=== PATIENT | female | born 1990 ===

== ENCOUNTER 2017-12-16 13:40 | Emergency (ER) | payer OTHER ==
[2017-12-16 13:40] VITALS: BMI 39.9
[2017-12-16 14:14] VITALS: RESP 18
--- NOTE | 2017-12-16 15:08 | ED PDOC ---
HPI: Abdomen Time Seen by Provider: 12/16/17 14:05 Chief Complaint (Nursing): Abdominal Pain Chief Complaint (Provider): Abdominal Pain History Per: Patient History/Exam Limitations: no limitations Onset/Duration Of Symptoms: Days Current Symptoms Are (Timing): Still Present Additional Complaint(s): 27 year old female presents to the emergency department with a complaint diarrhea (non bloody), headache, vomiting, and epigastric abdominal pain x4 days. Reports she has been trying to eat fruits and water but is unable to hold anything in. Reports taking Tylenol PM yesterday. Denies fever or any sick contacts. Past Medical History Reviewed: Historical Data, Nursing Documentation, Vital Signs Vital Signs: Last Vital Signs Temp 97.0 F L 12/16/17 14:12 Pulse 90 12/16/17 14:12 Resp 18 12/16/17 14:12 BP 117/78 12/16/17 14:12 Pulse Ox 99 12/16/17 17:52 - Medical History PMH: Asthma Other PMH: Gastric sleeve - Surgical History Surgical History: - Family History Family History: States: Unknown Family Hx - Social History Current smoker - smoking cessation education provided: No Alcohol: None Drugs: Denies - Home Medications Home Medications: Ambulatory Orders Medication Instructions Recorded Albuterol HFA [Ventolin HFA 90 2 puff IH Q4H PRN #1 inh 05/13/16 mcg/actuation (8 g)] Amoxicillin/Clavulanate [Augmentin 1 tab PO BID #20 tab 05/13/16 875 MG-125 MG] Fluticasone Propionate [Flonase] 1 spr NS DAILY #1 bot 05/13/16 Promethazine/Dextromethorphan 10 ml PO Q6 PRN #1 bottle 05/13/16 [Promethazine-Dm Solution] Ondansetron [Zofran] 4 mg PO Q6H PRN #10 tab 12/16/17 - Allergies Allergies/Adverse Reactions: Allergies Allergy/AdvReac Type Severity Reaction Status Date / Time aminophylline Allergy RASH Verified 05/13/16 21:47 Review of Systems ROS Statement: Except As Marked, All Systems Reviewed And Found Negative (As per HPI, otherwise negative) Constitutional: Negative for: Fever, Other (sick contacts) Gastrointestinal: Positive for: Vomiting, Abdominal Pain, Diarrhea. Negative for: Hematochezia Neurological: Positive for: Headache Physical Exam - Reviewed Nursing Documentation Reviewed: Yes Vital Signs Reviewed: Yes - Physical Exam Appears: Positive for: No Acute Distress Head Exam: Positive for: NORMAL INSPECTION Skin: Positive for: Normal Color, Warm, Dry Eye Exam: Positive for: Normal appearance ENT: Positive for: Normal ENT Inspection. Negative for: Pharyngeal Erythema Cardiovascular/Chest: Positive for: Regular Rate, Rhythm. Negative for: Murmur Respiratory: Positive for: Normal Breath Sounds. Negative for: Accessory Muscle Use, Respiratory Distress Gastrointestinal/Abdominal: Positive for: Soft, Tenderness (Mild epigastric tenderness). Negative for: Normal Exam Neurologic/Psych: Positive for: Alert, Oriented (x3) - Laboratory Results Result Diagrams: 12/16/17 15:28 12/16/17 15:28 - ECG O2 Sat by Pulse Oximetry: 99 (RA) Pulse Ox Interpretation: Normal Medical Decision Making Medical Decision Making: Time: 1500 Initial impression: Diarrhea and abdominal pain rule out gastroenteritis Initial plan: --CMP --Lipase --CBC w/ diff --Famotidine 20 mg IVP --Sodium Chloride 1L IV --Ondansetron ODT 4 mg PO --Reevaluation Time: 1746 --Patient feels better but is still experiencing diarrhea. --Imodium 4 mg PO pt feels better, tolerated po, will follow up with pcp in 1-2 days for reevaluation Scribe Attestation: Documented by Brianna Barrow, acting as a scribe for Nereida Marley MD Provider Scribe Attestation: All medical record entries made by the Scribe were at my direction and personally dictated by me. I have reviewed the chart and agree that the record accurately reflects my personal performance of the history, physical exam, medical decision making, and the department course for this patient. I have also personally directed, reviewed, and agree with the discharge instructions and disposition. Disposition - Clinical Impression Clinical Impression: Viral gastroenteritis - Patient ED Disposition Is Patient to be Admitted: No Counseled Patient/Family Regarding: Studies Performed, Diagnosis, Need For Followup - Disposition Referrals: [facility] [Outside] [facility] [Outside] Disposition: Routine/Home Disposition Time: 16:40 Condition: IMPROVED Additional Instructions: follow up with your primary doctor in 1-2 days return to the ED with any worsening or concerning symptoms Prescriptions: Ondansetron [Zofran] 4 mg PO Q6H PRN #10 tab PRN Reason: Nausea/Vomiting Forms: [facility] ([place])
[2017-12-16] MEDS ORDERED: Sodium Chloride 0.9% 1,000 ML IV STA (15:15)
[2017-12-16 15:35] LABS: BASO % 0.6 % (0.0-2.0); EOS % 0.4 % (0.0-4.0); HEMOGLOBIN 11.9 g/dL (12.0-16.0); LYMPH # 1.5 K/uL (1.0-4.3); MEAN CELL VOLUME 80.4 fl (81.0-99.0); MEAN CORPUSCULAR HEMOGLOBIN 26.2 pg (27.0-31.0); MEAN CORPUSCULAR HGB CONC 32.6 g/dL (33.0-37.0); MEAN PLATELET VOLUME 9.5 fl (7.2-11.7); MONO # 0.5 K/uL (0.0-0.8); MONO % 11.7 % (0.0-10.0); NEUT # 2.2 K/uL (1.8-7.0); NEUT % 51.3 % (50.0-75.0); NRBC % 0.1 % (0.0-0.0); RBC 4.54 Mil/uL (3.80-5.20); RED CELL DISTRIBUTION WIDTH 14.5 % (11.5-14.5); WHITE BLOOD COUNT 4.2 K/uL (4.8-10.8)
[2017-12-16 15:58] LABS: ALB/GLOB RATIO 1.1 (1.0-2.1); ALBUMIN 3.7 g/dL (3.5-5.0); CALCIUM 8.4 mg/dL (8.4-10.2); GFR AFRICAN-AMERICAN > 60; GFR NON-AFRICAN AMERICAN > 60; LIPASE 94 U/L (23-300)
[2017-12-16 16:01] LABS: ALT/SGPT 27 U/L (9-52); AST/SGOT 37 U/L (14-36); BLOOD UREA NITROGEN 9 mg/dl (7-17)
[2017-12-16 19:30] VITALS: BP 120/70; PULSE 72; TEMP 98; O2SAT 98
== END 2017-12-16 19:30 | disposition home or self-care (01) ==
LOC: H.ER 13:40
DX: A08.4 Viral intestinal infection, unspecified (principal); J45.909 Unspecified asthma, uncomplicated
CPT/HCPCS: 80053; 83690; 85025; 96361; 96374; 99283; J7040